=== PATIENT | male | born 1955 | race Caucasian/White ===

== ENCOUNTER 2025-06-10 22:55 | Inpatient (IN) | payer MEDICAID ==
[~2025-06-10] VITALS: Ht 182.9 cm; Wt 79.5 kg
[2025-06-10 22:57] VITALS: O2SAT 98
[2025-06-10 23:58] LABS: BASOPHILS % 0.4 % (0.0-2.0); EOSINOPHILS % 1.5 % (0.0-5.0); HEMATOCRIT. 30.7 % (42.0-52.0); HEMOGLOBIN. 9.5 g/dL (14.0-18.0); LYMPHOCYTES % 12.6 % (20.0-50.0); MEAN PLATELET VOLUME 9.9 fl (7.4-10.4); MONOCYTES % 5.6 % (2.0-8.0); NEUTROPHILS % 79.9 % (40.0-76.0); PLATELET 149 x1000/uL (130-400); RED BLOOD CELL COUNT 4.26 mill/uL (4.7-6.1); RED CELL DISTRIBUTION WIDTH 20.0 % (11.6-14.6)
[2025-06-11] VITALS (7 sets, daily range): BP systolic 128–162; BP diastolic 70–98; PULSE 70–84; RESP 18–20; TEMP 36.6–37.2; O2SAT 98–99
[2025-06-11 00:06] LABS: INR 1.0
[2025-06-11 00:08] LABS: CREATININE 1.1 mg/dL (0.6-1.3); ETHANOL BLOOD < 10 mg/dL (<10); TROPONIN I HIGH SENSITIVITY 4 ng/L (3.0-53); UREA NITROGEN BLOOD 14 mg/dL (9-23)
[2025-06-11 00:09] LABS: ASPARTATE AMINOTRANSFERASE 14 IU/L (<34)
[2025-06-11 00:10] LABS: BILIRUBIN DIRECT 0.4 mg/dL (<=3.0); BILIRUBIN TOTAL 1.3 mg/dL (0.1-1.0); PROTEIN TOTAL 6.9 g/dL (6.0-8.3)
[2025-06-11] MEDS: ONDANSETRON HCL 4MG/2ML INJ IV NR (00:48)
[2025-06-11] MEDS: MORPHINE SULFATE 4 MG/ML INJ (FOR IV/IM USE) IV NR (00:52)
[2025-06-11] MEDS: LEVETIRACETAM 1000MG PREMIX 100 ML IV NR (00:53)
[2025-06-11] MEDS: DEXAMETHASONE 10 MG/ML VIAL IV ONE (01:15)
[2025-06-11] MEDS: SODIUM CHLORIDE 0.9% 1,000 ML IV NR (01:21)
[2025-06-11 01:47] LABS: CLARITY URINE CLEAR (CLEAR); COLOR URINE YELLOW (YELLOW); GLUCOSE URINE NEGATIVE (NEGATIVE); KETONES URINE NEGATIVE (NEGATIVE); LEUKOCYTE ESTERASE URINE NEGATIVE (NEGATIVE); NITRITE URINE NEGATIVE (NEGATIVE); OCCULT BLOOD URINE NEGATIVE (NEGATIVE); PH URINE 8.5 (4.5-8.0); PROTEIN URINE TRACE (NEGATIVE); SPECIFIC GRAVITY URINE 1.008 (1.005-1.030); UROBILINOGEN URINE 0.2 E.U./dL (0.2-1.0)
[2025-06-11 01:48] LABS: TROPONIN I HIGH SENSITIVITY 11 ng/L (3.0-53)
[2025-06-11 01:51] LABS: *AMPHETAMINES SCREEN URINE NEGATIVE (NEGATIVE); *BARBITURATES SCREEN URINE NEGATIVE (NEGATIVE); *BENZODIAZEPINES SCREEN URINE NEGATIVE (NEGATIVE); *COCAINE SCREEN URINE NEGATIVE (NEGATIVE); CANNABINOID URINE SCREEN NEGATIVE (NEGATIVE); ECSTASY MDMA SCREEN URINE NEGATIVE (NEGATIVE); METHADONE URINE SCREEN NEGATIVE (NEGATIVE); OPIATES URINE SCREEN NEGATIVE (NEGATIVE); PHENCYCLIDINE URINE SCREEN NEGATIVE (NEGATIVE)
[2025-06-11 02:03] LABS: BACTERIA URINE NONE SEEN; RBC URINE NONE SEEN /hpf (0-2); SQUAMOUS EPITHELIAL CELL URINE RARE /lpf (RARE/1+); WBC URINE 0-2 /hpf (0-2)
[2025-06-11] MEDS ORDERED: ASPI-1153 PO (03:25)
[2025-06-11] MEDS ORDERED: ONDANSETRON HCL 4MG/2ML INJ IV PRN (03:45)
[2025-06-11] MEDS ORDERED: IPRATROPIUM/ALBUTEROL 0.5-3(2.5)MG/3ML NEB HHN PRN (03:45)
[2025-06-11] MEDS ORDERED: DOCUSATE SODIUM 100MG CAPSULE PO PRN (03:45)
[2025-06-11] MEDS ORDERED: ACETAMINOPHEN 325MG TABLET PO PRN (03:45)
[2025-06-11] MEDS ORDERED: GUAIFENESIN 200MG/10ML SUGAR FREE UDC PO PRN (03:45)
[2025-06-11] MEDS: CLONIDINE 0.1MG TABLET PO PRN (05:02)
[2025-06-11] MEDS: POTASSIUM CHLORIDE 20MEQ/PACKET PO SCH (05:02)
[2025-06-11] MEDS: ACETAMINOPHEN 325MG TABLET PO PRN (05:03)
[2025-06-11] MEDS ORDERED: NALOXONE HCL 0.4MG/ML VIAL IV PRN (05:45)
[2025-06-11] MEDS: PANTOPRAZOLE 40MG DR TABLET PO SCH (06:37)
[2025-06-11] MEDS: DEXT 5%/0.9% NACL 1,000 ML IV SCH (06:37)
[2025-06-11] MEDS ORDERED: LEVETIRACETAM 1,000MG in NACL 100ML PREMIX IV SCH (09:00)
[2025-06-11] MEDS: ENOXAPARIN 40MG/0.4ML SYR SUBCUT SCH (09:22)
[2025-06-11] MEDS: LEVETIRACETAM 1000MG PREMIX 100 ML IV SCH (09:22)
[2025-06-11] MEDS: HYDROCODONE/ACETAMINOPHEN 5/325MG TABLET PO PRN (09:22)
[2025-06-11 12:38] LABS: PLATELET 157 x1000/uL (130-400); RED BLOOD CELL COUNT 4.39 mill/uL (4.7-6.1); RED CELL DISTRIBUTION WIDTH 19.7 % (11.6-14.6)
[2025-06-11 12:56] LABS: TROPONIN I HIGH SENSITIVITY 5 ng/L (3.0-53)
[2025-06-11 14:37] LABS: CREATININE 1.0 mg/dL (0.6-1.3); UREA NITROGEN BLOOD 13 mg/dL (9-23)
[2025-06-11 16:46] LABS: FOLIC ACID (FOLATE) SERUM 14.68 ng/mL (>5.38); VITAMIN B12 SERUM 580 pg/mL (211-911)
[2025-06-11] MEDS: SODIUM CHLORIDE 0.9% 500 ML IV ONE (16:56)
[2025-06-11 22:30] LABS: TROPONIN I HIGH SENSITIVITY 6 ng/L (3.0-53)
[2025-06-12] VITALS: BP 100/57; PULSE 68; RESP 17; TEMP 36.7; O2SAT 99
[2025-06-12 04:00] VITALS: BP 104/61; PULSE 65; RESP 18; TEMP 36.4; O2SAT 99
[2025-06-12 07:40] LABS: BASOPHILS % 0.2 % (0.0-2.0); EOSINOPHILS % 0.4 % (0.0-5.0); HEMATOCRIT. 29.2 % (42.0-52.0); HEMOGLOBIN. 9.1 g/dL (14.0-18.0); LYMPHOCYTES % 13.0 % (20.0-50.0); MEAN PLATELET VOLUME 10.3 fl (7.4-10.4); MONOCYTES % 6.3 % (2.0-8.0); NEUTROPHILS % 80.1 % (40.0-76.0); PLATELET 148 x1000/uL (130-400); RED BLOOD CELL COUNT 4.12 mill/uL (4.7-6.1); RED CELL DISTRIBUTION WIDTH 19.7 % (11.6-14.6)
[2025-06-12 07:53] LABS: CREATININE 1.1 mg/dL (0.6-1.3)
[2025-06-12 07:54] LABS: LDL CHOLESTEROL 133 mg/dL (5-100); TRIGLYCERIDE 85 mg/dL (0-150); UREA NITROGEN BLOOD 21 mg/dL (9-23)
[2025-06-12 07:56] LABS: PHOSPHORUS 2.9 mg/dL (2.5-4.9)
[2025-06-12 07:58] LABS: T4 FREE 1.11 ng/dL (0.89-1.76)
[2025-06-12 08:00] VITALS: BP 115/69; PULSE 71; RESP 20; TEMP 36.6; O2SAT 100
[2025-06-12 12:00] VITALS: BP 128/74; PULSE 82; RESP 18; TEMP 36.6; O2SAT 96
[2025-06-12 16:00] VITALS: BP 130/73; PULSE 78; RESP 20; TEMP 36.6; O2SAT 98
[2025-06-12] MEDS ORDERED: POLYETHYLENE GLYCOL 3350 (17GM) 1 DOSE PACK PO PRN (16:00)
[2025-06-12] MEDS: FERROUS SULFATE 325MG TABLET PO SCH (17:08)
[2025-06-12 20:00] VITALS: BP 126/78; PULSE 67; RESP 18; TEMP 36.4; O2SAT 98
[2025-06-12] MEDS: ATORVASTATIN CALCIUM 40MG TABLET PO SCH (21:49)
[2025-06-13] VITALS: BP 126/70; PULSE 66; RESP 19; TEMP 36.8; O2SAT 98
[2025-06-13 04:00] VITALS: BP 131/84; PULSE 65; RESP 20; TEMP 36.7; O2SAT 97
[2025-06-13 08:00] VITALS: BP 134/83; PULSE 66; RESP 18; TEMP 36.3; O2SAT 98
[2025-06-13 09:04] LABS: PLATELET 139 x1000/uL (130-400); RED BLOOD CELL COUNT 4.36 mill/uL (4.7-6.1); RED CELL DISTRIBUTION WIDTH 19.7 % (11.6-14.6)
[2025-06-13 09:07] LABS: CREATININE 1.1 mg/dL (0.6-1.3)
[2025-06-13 09:08] LABS: UREA NITROGEN BLOOD 19 mg/dL (9-23)
[2025-06-13 12:00] VITALS: BP 149/83; PULSE 77; RESP 19; TEMP 36.7; O2SAT 98
[2025-06-13 16:00] VITALS: BP 117/63; PULSE 69; RESP 20; TEMP 36.7; O2SAT 98
[2025-06-13] MEDS ORDERED: LIP40 MT (17:30)
[2025-06-13] MEDS ORDERED: KEPP500 MT (17:30)
[2025-06-13 17:35] VITALS: BP 117/63; PULSE 69; RESP 20; TEMP 98
== END 2025-06-13 19:50 | disposition home or self-care (01) | DRG 58 ==
LOC: ER 22:55 → ENRESERV 06-11 02:07 → 6WST 06-11 02:57
PROVIDERS: ADMIT Internal Medicine; ATTEND Internal Medicine
DX: D32.9 Benign neoplasm of meninges, unspecified (principal); G93.6 Cerebral edema; M62.82 Rhabdomyolysis; E16.2 Hypoglycemia, unspecified; E80.6 Other disorders of bilirubin metabolism; E87.6 Hypokalemia; D50.9 Iron deficiency anemia, unspecified; E78.5 Hyperlipidemia, unspecified; M50.31 Other cervical disc degeneration, high cervical region; M48.02 Spinal stenosis, cervical region
CPT/HCPCS: 36415; 70551; 71045; 80048; 80061; 80076; 80305; 80320; 81003; 82550; 82607; 82746; 83036; 83540; 83550; 83735; 84100; 84439; 84443; 84484; 85025; 85027; 93005; 93970; 99291; J1100; J1650; J1953; J2270; J2405; J7042; G0480